=== PATIENT | female | born 1965 | race Two or more races ===

== ENCOUNTER 2017-05-07 11:09 | Emergency (ER) | payer SELFPAY ==
[~2017-05-07] VITALS: Ht 165.1 cm; Wt 61.2 kg
--- NOTE | 2017-05-07 11:18 | NUR ---
PT BIBRA FROM THE STREETS TO ER BED 10. PER REPORT, ETOH. N O OBVIOUS TRAUMA NOTED. PT EASILY AROUSABLE. REFUSE TO ANSWER TO ANY QUESTION. STABLE VITALS. AWAITING MD BERRIOS.
--- NOTE | 2017-05-07 11:20 | NUR ---
DR ALEJO AT BEDSIDE FOR EVAL.
--- NOTE | 2017-05-07 11:30 | NUR ---
PT TO RADIOLOGY FOR HEAD CT SCAN VIA [facility].
--- NOTE | 2017-05-07 14:01 | NUR ---
PT SLEEPING. ON MONITOR W/ STABLE VITALS. WILL CONT TO MONITOR.
--- NOTE | 2017-05-07 15:42 | NUR ---
PT AWAKE. AMBULATORY W/ STEADY GAIT. WANTS TO LEAVE ED. PT IS MEDICALLY CLEARED FOR DISCHARGE. STABLE CONDITION.
[2017-05-07 15:43] VITALS: BP 132/80
== END 2017-05-07 15:44 | disposition home or self-care (01) ==
LOC: ER 11:16
DX: F10.129 Alcohol abuse with intoxication, unspecified (principal); R40.4 Transient alteration of awareness
CPT/HCPCS: 36415; 70450; 82962; 99285; A4606; G0480; Z7610